=== PATIENT | male | born 1935 | race Caucasian/White ===

== ENCOUNTER 2019-06-16 09:17 | Day surgery (SDC) | payer MEDICARE ==
[2019-06-16] MEDS ORDERED: LIDOcaine 1%/PF 5ML 10 MG/ML VIAL ONE (10:33)
== END 2019-06-16 11:00 | disposition home or self-care (01) ==
LOC: WOUND CARE 09:17
PROVIDERS: ATTEND Surgery
DX: C44.519 Basal cell carcinoma of skin of other part of trunk (principal); E78.5 Hyperlipidemia, unspecified; M19.90 Unspecified osteoarthritis, unspecified site; F17.200 Nicotine dependence, unspecified, uncomplicated; Z85.828 Personal history of other malignant neoplasm of skin; Z98.49 Cataract extraction status, unspecified eye
CPT/HCPCS: 11602; A4663

== ENCOUNTER 2019-06-23 09:30 | Day surgery (SDC) | payer MEDICARE ==
[2019-06-23] MEDS ORDERED: LIDOcaine 1%/PF 5ML 10 MG/ML VIAL ONE ×2 (10:54→11:00)
== END 2019-06-23 12:00 | disposition home or self-care (01) ==
LOC: WOUND CARE 09:30
PROVIDERS: ATTEND Surgery
DX: C44.519 Basal cell carcinoma of skin of other part of trunk (principal); E78.5 Hyperlipidemia, unspecified; M19.90 Unspecified osteoarthritis, unspecified site; F17.200 Nicotine dependence, unspecified, uncomplicated; Z85.828 Personal history of other malignant neoplasm of skin; Z98.49 Cataract extraction status, unspecified eye
CPT/HCPCS: 11106; 11604; 88305; 88331; 88332

== ENCOUNTER 2019-07-01 08:45 | Outpatient (CLI) | payer MEDICARE | END 2019-07-01 09:55 | disposition home or self-care (01) | LOC: WOUND CARE 08:45 → EDSTATUS 09:00 → WOUND CARE 09:55 | PROVIDERS: ATTEND Surgery | DX: C44.519 Basal cell carcinoma of skin of other part of trunk (principal); E78.5 Hyperlipidemia, unspecified; M19.90 Unspecified osteoarthritis, unspecified site; F17.200 Nicotine dependence, unspecified, uncomplicated; Z85.828 Personal history of other malignant neoplasm of skin; Z98.49 Cataract extraction status, unspecified eye | CPT/HCPCS: G0463 ==

== ENCOUNTER 2019-10-26 11:29 | Day surgery (SDC) | payer MEDICARE ==
[2019-10-26] VITALS (11 sets, daily range): BP systolic 120–151; BP diastolic 54–94
[~2019-10-26] VITALS: Ht 188 cm; Wt 84.6 kg
[2019-10-26] MEDS ORDERED: midazolam 2 mg/2 ml injection ONE ×2 (11:51→13:15)
[2019-10-26] MEDS ORDERED: fentaNYL/PF 50MCG/1 ML 2ML syringe ONE (11:51)
[2019-10-26] MEDS ORDERED: LIDOcaine 1% (10mg/ml)w/preservative injection 20ml MDV ONE (11:51)
[2019-10-26] MEDS ORDERED: iohexol 350MG/ML 100ml bottle IV ONE (11:52)
[2019-10-26] MEDS ORDERED: iohexol 350 MG/ML 50ML vial IV ONE (11:52)
[2019-10-26] MEDS ORDERED: nitroGLYCERIN 0.4mg SUBLingual tab SL PRN (11:55)
[2019-10-26] MEDS ORDERED: diphenhydrAMINE 25mg capsule PO PRN (11:55)
[2019-10-26] MEDS ORDERED: normal saline 1,000 ML IV SCH (11:55)
[2019-10-26] MEDS ORDERED: LORazepam 0.5 MG tablet PO PRN (11:55)
[2019-10-26] MEDS ORDERED: TERA10CA4 PO (12:04)
[2019-10-26] MEDS ORDERED: PRAV40TA3 PO (12:04)
[2019-10-26] MEDS ORDERED: ASPI-109 PO (12:04)
[2019-10-26] MEDS ORDERED: ACET-2615 PO (12:04)
[2019-10-26] MEDS ORDERED: NAPR500T6 PO (12:04)
[2019-10-26] MEDS ORDERED: FINA5TAB11 PO (12:04)
[2019-10-26] MEDS ORDERED: OXAZEpam 15mg capsule PO PRN (14:45)
[2019-10-26] MEDS ORDERED: ondansetron/PF 4mg/2ml inj IV PRN (14:45)
[2019-10-26] MEDS ORDERED: proCHLORperazine 10 MG/2 ml inj IV PRN (14:45)
[2019-10-26] MEDS ORDERED: HYDROcodone/acetaminophen 10/325mg tab PO PRN (14:45)
[2019-10-26] MEDS ORDERED: HYDROcodone/acetaminophen 5mg/325mg tablet PO PRN (14:45)
== END 2019-10-26 19:30 | disposition home or self-care (01) ==
LOC: SSTAY O 11:29
PROVIDERS: ATTEND Internal Medicine Cardiovascular Disease
DX: R94.39 Abnormal result of other cardiovascular function study (principal); I25.10 Atherosclerotic heart disease of native coronary artery without angina pectoris; I25.82 Chronic total occlusion of coronary artery; F17.290 Nicotine dependence, other tobacco product, uncomplicated; N40.0 Benign prostatic hyperplasia without lower urinary tract symptoms; J44.9 Chronic obstructive pulmonary disease, unspecified; I10 Essential (primary) hypertension; M54.30 Sciatica, unspecified side; Z79.899 Other long term (current) drug therapy; Z98.890 Other specified postprocedural states; Z98.52 Vasectomy status
CPT/HCPCS: 93005; 93458; 99152; 99153; C1760; C1769; J1644; J2001; J2250; J3010; J7030; Q0163; Q9967; A4620; A6258